=== PATIENT | female | born 1980 | race Hispanic/Latino ===

== ENCOUNTER 2023-04-18 12:45 | Inpatient (IN) | payer MEDICAID, OTHER, SELFPAY ==
[2023-04-18 13:52] LABS: Fetal Membranes Rupture RUPTURE DETECTED (No Rupture)
[2023-04-18] MEDS ORDERED: hydrALAZINE 20 MG/ML VIAL SLOW IVP PRN (14:14)
[2023-04-18] MEDS ORDERED: Diphenoxylate HCl/Atropine Tablet PO PRN ×2 (14:14)
[2023-04-18] MEDS ORDERED: Carboprost 250 MCG/ML AMP IM PRN (14:14)
[2023-04-18] MEDS ORDERED: Ondansetron PF 4 MG/2 ML Vial IVP PRN ×2 (14:14→21:42)
[2023-04-18] MEDS ORDERED: Lidocaine 1% (PF) 30 ML VIAL SC PRN (14:14)
[2023-04-18] MEDS ORDERED: Methylergonovine 0.2 MG/ML VIAL IM PRN (14:14)
[2023-04-18] MEDS ORDERED: Docusate 100 MG CAP PO PRN (14:14)
[2023-04-18] MEDS ORDERED: Ibuprofen 800 MG TAB PO PRN (14:14)
[2023-04-18] MEDS ORDERED: Acetaminophen 500 MG TAB PO PRN (14:14)
[2023-04-18] MEDS ORDERED: Promethazine HCl 25 MG/ML VIAL IM PRN ×2 (14:14→21:42)
[2023-04-18] MEDS ORDERED: Misoprostol 200 MCG TAB PR PRN (14:14)
[2023-04-18] MEDS ORDERED: HYDROcodone/Acetaminophen 5/325 mg Tablet PO PRN (14:14)
[2023-04-18] MEDS ORDERED: NS w/ Oxytocin 30 units 500 ML IV SCH ×3 (14:15)
[2023-04-18] MEDS ORDERED: Penicillin G Potassium 5 MILL.UNITS in Sodium Chloride 0.9% 100 ML IVPB SCH (14:15)
[2023-04-18 15:14] LABS: Hemoglobin 10.7 g/dL (12.0-15.5); Mean Corpuscular HGB CONC 33.3 g/dL (32.0-36.0); Mean Corpuscular Hemoglobin 28.2 pg (27.0-33.0); Mean Corpuscular Volume 84.5 fl (81.6-98.3); Mean Platelet Volume 12.6 fl (7.4-10.4); Platelet Count 221 10x3/uL (150-450); RBC Distribution Width 12.6 % (11.5-14.5); White Blood Cell (WBC) Count 6.2 10x3/uL (3.5-10.5)
[2023-04-18 15:43] LABS: HBSAg Index 0.18 S/CO (0-0.99); Hep B Surf Ag - L&D Non-Reactive S/CO (NonReactive); Syphilis Antibody Nonreactive (Nonreactive); Syphilis Antibody Index 0.04 S/CO (<1.00 Non-Reactive)
[2023-04-18 16:30] VITALS: BMI 31.1
[2023-04-18] MEDS: Penicillin G 2.5 MILL.units 2.5 MILL.UNITS in Premix Bag 1 BAG IVPB SCH ×2 (18:35→22:35)
[2023-04-18] MEDS ORDERED: fentaNYL/Ropivacaine Epidural 100 ML ONE (19:23)
[2023-04-18] MEDS ORDERED: Bupivacaine HCl 0.5%/Epinephrine 1:200,000/PF 30 ml Vial ONE (19:33)
[2023-04-18] MEDS ORDERED: Bupivacaine 0.25% HCL 30 ML VIAL ONE (19:33)
[2023-04-18] MEDS: Lactated Ringer's 1,000 ML IV SCH ×2 (21:24→22:32)
[2023-04-18] MEDS ORDERED: Acetaminophen 325 MG TAB PO PRN (21:42)
[2023-04-18] MEDS ORDERED: Lactated Ringer's 500 ML IV PRN (21:42)
[2023-04-18] MEDS ORDERED: ePHEDrine Sulfate 50 MG/10 ML VIAL SLOW IVP PRN (21:42)
[2023-04-18] MEDS ORDERED: diphenhydrAMINE 50 MG/ML VIAL IVP PRN (21:42)
[2023-04-18] MEDS ORDERED: Moisturizing Cream (Eucerin) 113 GM JAR TOP PRN (21:42)
[2023-04-18] MEDS ORDERED: Naloxone HCl 0.4 mg/ml Vial IVP PRN ×2 (21:42)
[2023-04-18] MEDS ORDERED: Communication Order-Pharmacy FS SCH (21:45)
[2023-04-18] MEDS ORDERED: fentaNYL 2 mcg/Ropivacaine 0.2% Epidural 100 ML CADD EPIDURAL SCH (21:45)
[2023-04-18 22:25] LABS: HIV (1/2) Antibody/Antigen Non-Reactive (NonReactive); HIV 1/2 INDEX 0.07 S/CO (<1.00)
[2023-04-19] MEDS ORDERED: Tranexamic Acid 1,000 MG/10 ML VIAL ONE (02:22)
[2023-04-19] MEDS: Penicillin G 2.5 MILL.units 2.5 MILL.UNITS in Premix Bag 1 BAG IVPB SCH (02:25)
[2023-04-19] MEDS ORDERED: Dexmedetomidine 200 MCG/2 ML VIAL ONE (07:58)
[2023-04-19] MEDS ORDERED: fentaNYL/Ropivacaine Epidural 100 ML ONE (10:57)
[2023-04-19] MEDS ORDERED: fentaNYL 50 mcg/mL 1 mL Vial ONE (11:44)
[2023-04-19] MEDS ORDERED: Bisacodyl 10 MG SUPP PR PRN (13:53)
[2023-04-19] MEDS ORDERED: NS w/ Oxytocin 30 units 500 ML IV SCH (13:53)
[2023-04-19] MEDS ORDERED: Benzocaine-Menthol 82.5 ML CAN TOP PRN (13:53)
[2023-04-19] MEDS ORDERED: Milk Of Magnesia 30 ML UDCUP PO PRN (13:53)
[2023-04-19] MEDS ORDERED: hydrALAZINE 20 MG/ML VIAL SLOW IVP PRN (13:53)
[2023-04-19] MEDS ORDERED: Methylergonovine 0.2 MG/ML VIAL IM PRN (13:53)
[2023-04-19] MEDS ORDERED: Boostrix 0.5 ML (Tdap) VIAL (>/=7 yrs of age) IM ONE (13:53)
[2023-04-19] MEDS ORDERED: Promethazine HCl 25 MG/ML VIAL IM PRN (13:53)
[2023-04-19] MEDS ORDERED: Misoprostol 200 MCG TAB VAG PRN (13:53)
[2023-04-19] MEDS ORDERED: Ondansetron PF 4 MG/2 ML Vial IVP PRN (13:53)
[2023-04-19] MEDS: Ibuprofen 800 MG TAB PO SCH ×2 (16:18→22:08)
[2023-04-19] MEDS: Ferrous Sulfate 325 MG TAB PO SCH (17:00)
[2023-04-19] MEDS: Docusate 100 MG CAP PO SCH (22:08)
[2023-04-20] MEDS: Ibuprofen 800 MG TAB PO SCH ×3 (06:10→21:13)
[2023-04-20] MEDS: Ferrous Sulfate 325 MG TAB PO SCH ×2 (07:51→17:34)
[2023-04-20] MEDS: Docusate 100 MG CAP PO SCH ×2 (10:09→21:13)
[2023-04-20] MEDS: Prenatal Vitamin 1 TAB PO SCH (10:09)
[2023-04-21] MEDS: Ibuprofen 800 MG TAB PO SCH ×2 (05:17→13:33)
[2023-04-21] MEDS: Ferrous Sulfate 325 MG TAB PO SCH ×2 (07:13→18:18)
[2023-04-21] MEDS: Prenatal Vitamin 1 TAB PO SCH (07:43)
[2023-04-21] MEDS: Docusate 100 MG CAP PO SCH (07:43)
[2023-04-21 11:36] VITALS: BP 100/55; TEMP 98.1
== END 2023-04-21 19:45 | disposition home or self-care (01) | DRG 807 ==
LOC: CSHLD/OP 12:45 → CSHLD 13:53 → CSHPP 04-19 15:00
PROVIDERS: ADMIT Family Medicine; ATTEND Family Medicine
PROC: 10E0XZZ Delivery of Products of Conception, External Approach (ICD-10-PCS; principal; 2023-04-19)
PROC: 10D17Z9 Manual Extraction of Products of Conception, Retained, Via Natural or Artificial Opening (ICD-10-PCS; 2023-04-19)
DX: O42.013 Preterm premature rupture of membranes, onset of labor within 24 hours of rupture, third trimester (principal); Z37.0 Single live birth; Z3A.36 36 weeks gestation of pregnancy; Z79.82 Long term (current) use of aspirin
CPT/HCPCS: 51702; 84112; 85027; 86762; 86780; 86850; 86900; 86901; 87340; 87389; 99285; J2540; J2590; J3010; J3490; J7120; S0020